=== PATIENT | female | born 1980 | race Caucasian/White ===

== ENCOUNTER 2021-01-01 14:18 | Emergency (ER) | payer OTHER ==
[2021-01-01] MEDS ORDERED: PENVEE K 500 M500 MG PO (14:58)
[2021-01-01] MEDS ORDERED: HYDROCODON-ACE1 EAC4 PO (14:58)
[2021-01-01] MEDS ORDERED: CELEBREX100 MG PO (14:59)
== END 2021-01-01 15:07 | disposition home or self-care (01) ==
LOC: ER1 14:18
DX: K04.7 Periapical abscess without sinus (principal); F17.210 Nicotine dependence, cigarettes, uncomplicated; Z88.1 Allergy status to other antibiotic agents
CPT/HCPCS: 99283